=== PATIENT | female | born 1945 ===

== ENCOUNTER → 2018-12-25 | Outpatient (CLI) | payer MEDICARE, OTHER ==
--- NOTE | 2018-12-25 12:52 | Diagnostic Imaging Report ---
Indication: Thyroid nodule. Findings: Ultrasound guidance was provided for Dr. Crowder during thyroid nodule aspiration. Impression: Ultrasound guidance. Thyroid biopsy as described. Dictated by: Dictated on workstation # [id number]
== END ==
LOC: RAD 10:26
PROVIDERS: ATTEND Otolaryngology Otolaryngology/Facial Plastic Surgery
DX: E04.1 Nontoxic single thyroid nodule (principal)
CPT/HCPCS: 76942